=== PATIENT | female | born 1985 | race Caucasian/White ===

== ENCOUNTER 2019-08-03 06:19 | Emergency (ER) | payer MEDICAID ==
[~2019-08-03] VITALS: Ht 170.2 cm; Wt 67.0 kg
[2019-08-03] MEDS ORDERED: ketorolac trometh. 30mg/ml inj. IV ONE (07:45)
[2019-08-03] MEDS ORDERED: normal saline 1000ML IV soln IVB ONE (07:45)
[2019-08-03] MEDS ORDERED: diphenhydrAMINE 50 mg/ml inj IV ONE (07:45)
[2019-08-03] MEDS ORDERED: LORazepam 2 mg/ml vial IV ONE (07:45)
[2019-08-03] MEDS ORDERED: metoclopramide 5 mg/ml inj IV ONE (07:45)
[2019-08-03] MEDS ORDERED: dexamethasone sod phosphate 10mg/ml inj IV STA (08:19)
[2019-08-03 09:35] VITALS: BP 122/70
== END 2019-08-03 10:43 | disposition home or self-care (01) ==
LOC: ER 06:19
DX: R51 Headache (principal); R21 Rash and other nonspecific skin eruption; L98.8 Other specified disorders of the skin and subcutaneous tissue; F15.90 Other stimulant use, unspecified, uncomplicated; R11.2 Nausea with vomiting, unspecified; Z88.0 Allergy status to penicillin
CPT/HCPCS: 96361; 96374; 96375; 99283; J1100; J1200; J1885; J2060; J2765; J7030

== ENCOUNTER 2019-08-05 23:31 | Emergency (ER) | payer MEDICAID ==
[~2019-08-05] VITALS: Ht 170.2 cm; Wt 67.0 kg
--- NOTE | 2019-08-06 00:40 | NUR ---
DR. SILVERIO AT BEDSIDE ASSESSING PATIENT
[2019-08-06] MEDS ORDERED: morphine 4 MG/ML inj SYRINge IM ONE (00:55)
[2019-08-06] MEDS ORDERED: normal saline 1000ML IV soln IV ONE (01:00)
[2019-08-06 01:33] LABS: BASOPHILS % (AUTO) 0.7 % (0-1); EOSINOPHILS # (AUTO) 0.1 X10'3 (0-0.9); EOSINOPHILS % (AUTO) 1.7 % (0-6); HEMATOCRIT 36.5 % (35.0-45.0); HEMOGLOBIN 12.7 g/dl (12.0-16.0); LYMPHOCYTES # (AUTO) 1.1 X10'3 (1.1-4.8); LYMPHOCYTES % (AUTO) 16.4 % (21-51); MEAN CORPUSCULAR HEMOGLOBIN 30.4 PG (27.0-31.0); MEAN CORPUSCULAR HGB CONC 34.7 g/dL (33.0-36.5); MEAN CORPUSCULAR VOLUME 87.6 FL (78-98); MEAN PLATELET VOLUME 6.9 FL (7.4-10.4); MONOCYTES # (AUTO) 0.5 X10'3 (0-0.9); MONOCYTES % (AUTO) 8.4 % (2-12); NEUTROPHILS # (AUTO) 4.7 X10'3 (1.8-7.7); NEUTROPHILS % (AUTO) 72.8 % (42-75); PLATELET COUNT 328 X10'3 (140-440); RED BLOOD COUNT 4.17 X10'6 (4.20-5.60); RED CELL DISTRIBUTION WIDTH 13.6 % (11.5-14.5); WHITE BLOOD COUNT 6.5 X10'3 (4.5-11.0)
[2019-08-06 01:48] LABS: ALANINE AMINOTRANSFERASE 17 U/L (12-78); ALBUMIN 3.2 G/DL (3.4-5.0); ALBUMIN/GLOBULIN RATIO 0.6 (1.1-1.5); ALKALINE PHOSPHATASE 113 IU/L (46-116); ANION GAP 7 (8-16); ASPARTATE AMINO TRANSFERASE 15 U/L (10-37); BILIRUBIN,TOTAL 0.3 MG/DL (0.1-1.0); BLOOD UREA NITROGEN 10 MG/DL (7-18); BUN/CREATININE RATIO 11.8 (6.6-38.0); CALCIUM 8.6 MG/DL (8.5-10.1); CHLORIDE 101 MMOL/L (99-107); CREATININE 0.85 MG/DL (0.40-0.90); GLUCOSE 93 MG/DL (70-104); POTASSIUM 3.7 MMOL/L (3.5-5.1); SODIUM 136 MMOL/L (135-145); TOTAL CARBON DIOXIDE 28.3 MMOL/L (24-32); TOTAL PROTEIN 8.5 G/DL (6.4-8.2); eGFR 77 ML/MIN
--- NOTE | 2019-08-06 01:57 | NUR ---
patient is a difficult iv stick failed on multiple attempts, spoke with dr. davies, went over labs and dr. davies verbalized to hold on iv re-check vitals and she will re assess patient
--- NOTE | 2019-08-06 02:07 | NUR ---
patient in bed covers on eyes closed rr even un labored no observable s/s of acute stress/pain at this time will continue to monitor
[2019-08-06] MEDS ORDERED: CLOT12CR TOP (02:40)
[2019-08-06 02:48] VITALS: BP 118/66
[2019-08-08 15:08] LABS: RPR Reactive (Non Reactive)
== END 2019-08-06 02:49 | disposition home or self-care (01) ==
LOC: ER 23:31
DX: B37.9 Candidiasis, unspecified (principal); K60.2 Anal fissure, unspecified; L98.499 Non-pressure chronic ulcer of skin of other sites with unspecified severity; R51 Headache; R11.10 Vomiting, unspecified; R21 Rash and other nonspecific skin eruption; F17.200 Nicotine dependence, unspecified, uncomplicated; Z88.0 Allergy status to penicillin; Z79.899 Other long term (current) drug therapy
CPT/HCPCS: 36415; 80053; 83605; 84145; 85025; 86592; 87040; 96372; 99283; J2270

== ENCOUNTER 2019-08-13 23:29 | Emergency (ER) | payer MEDICAID ==
[~2019-08-13] VITALS: Ht 170.2 cm; Wt 65.9 kg
[~2019-08-13 23:29] MED LIST: CLOT12CR TOP
[2019-08-14] MEDS ORDERED: azithromycin 250mg tablet PO ONE (00:45)
[2019-08-14] MEDS ORDERED: CefTRIAXone 1000mg IM Kit (w/lidocaine diluent) IM ONE (00:45)
[2019-08-14] MEDS ORDERED: DOXYCYCLINE 100MG CAPSULE PO STA (00:47)
[2019-08-14] MEDS ORDERED: NAPR-56 PO (00:55)
[2019-08-14] MEDS ORDERED: DOXY-1 PO (00:55)
[2019-08-14] MEDS ORDERED: naproxen 500mg tablet PO ONE (01:00)
[2019-08-14 01:45] LABS: HIV ANTIBODY 1&2 RAPID NON-REACTIVE (Neg)
[2019-08-14 02:20] VITALS: BP 130/58
== END 2019-08-14 02:22 | disposition home or self-care (01) ==
LOC: ER 23:30
DX: A53.9 Syphilis, unspecified (principal); F12.90 Cannabis use, unspecified, uncomplicated; Z88.0 Allergy status to penicillin
CPT/HCPCS: 36415; 86703; 87491; 87591; 96372; 99283; J0696

== ENCOUNTER 2020-01-16 03:58 | Emergency (ER) | payer MEDICAID ==
[~2020-01-16] VITALS: Ht 170.2 cm; Wt 63.6 kg
[2020-01-16 04:48] LABS: CLARITY,URINE SLIGHTLY CLOUDY (Clear); COLOR,URINE YELLOW (Yellow); GLUCOSE, URINE NEGATIVE (Neg); KETONES,URINE NEGATIVE (Neg); LEUKOCYTE ESTERASE ,URINE SMALL (Neg); NITRITES, URINE POSITIVE (Neg); OCCULT BLOOD,URINE NEGATIVE (Neg); PROTEIN,URINE NEGATIVE (Neg); UROBILINOGEN,URINE 0.2 E.U/dL (0.2-1.0)
[2020-01-16 04:49] LABS: URINE HCG POSITIVE (NEG)
[2020-01-16 05:00] LABS: UA COLLECTION TYPE CLN CATCH MIDSTREAM
[2020-01-16 05:02] LABS: WBC,URINE 20-30 /HPF (0-4)
[2020-01-16 05:03] LABS: BACTERIA,URINE 3+ /HPF (Neg); RBC,URINE NONE SEEN /HPF (0-2); SQUAMOUS EPITHELIAL CELL,UR MODERATE /LPF (FEW)
[2020-01-16] MEDS ORDERED: nitrofuran/nitrofuran macrocrysal 100 MG capsule PO ONE (05:05)
[2020-01-16] MEDS ORDERED: NITR100C6 PO (05:11)
[2020-01-16 05:17] LABS: URINE AMPHETAMINE SCREEN POSITIVE (Neg); URINE BARBITUATE SCREEN NEGATIVE (Neg); URINE BENZODIAZEPINES SCREEN NEGATIVE (Neg); URINE CANNABINOID SCREEN NEGATIVE (Neg); URINE COCAINE SCREEN NEGATIVE (Neg); URINE METHADONE SCREEN NEGATIVE (Neg); URINE OPIATE SCREEN NEGATIVE (Neg); URINE PHENCYCLIDINE SCREEN NEGATIVE (Neg)
[2020-01-16 05:18] VITALS: BP 108/69
== END 2020-01-16 05:20 ==
LOC: ER 03:58
DX: N39.0 Urinary tract infection, site not specified (principal); F15.20 Other stimulant dependence, uncomplicated; F12.90 Cannabis use, unspecified, uncomplicated; Z34.92 Encounter for supervision of normal pregnancy, unspecified, second trimester; Z3A.16 16 weeks gestation of pregnancy; Z88.0 Allergy status to penicillin; Z88.1 Allergy status to other antibiotic agents; Z79.2 Long term (current) use of antibiotics; Z79.899 Other long term (current) drug therapy
CPT/HCPCS: 80305; 81001; 81025; 87077; 87088; 87186; 99283

== ENCOUNTER 2021-10-09 09:44 | Emergency (ER) | payer MEDICAID ==
[~2021-10-09] VITALS: Ht 170.2 cm; Wt 73.1 kg
[~2021-10-09 09:44] MED LIST changes: +NITR100C6 PO
[2021-10-09 09:51] VITALS: BP 115/79
[2021-10-09] MEDS ORDERED: PRED10TA PO (10:08)
[2021-10-09] MEDS ORDERED: triamcinolone acetonide 40mg/ml inj IM ONE (10:10)
== END 2021-10-09 10:25 | disposition home or self-care (01) ==
LOC: ER 09:44
DX: L23.7 Allergic contact dermatitis due to plants, except food (principal); R21 Rash and other nonspecific skin eruption; F12.90 Cannabis use, unspecified, uncomplicated; F15.90 Other stimulant use, unspecified, uncomplicated; Z79.2 Long term (current) use of antibiotics; Z87.440 Personal history of urinary (tract) infections; Z88.0 Allergy status to penicillin; Z88.1 Allergy status to other antibiotic agents; Z79.899 Other long term (current) drug therapy
CPT/HCPCS: 96372; 99283; J3301

== ENCOUNTER 2021-10-16 04:07 | Emergency (ER) | payer MEDICAID ==
[~2021-10-16] VITALS: Ht 170.2 cm; Wt 73.0 kg
[~2021-10-16 04:07] MED LIST changes: +PRED10TA PO
[2021-10-16 04:15] VITALS: BP 124/87
[2021-10-16] MEDS ORDERED: clindamycin 150mg capsule PO ONE (05:35)
[2021-10-16] MEDS ORDERED: CLIN-97 PO (05:39)
== END 2021-10-16 06:07 | disposition home or self-care (01) ==
LOC: ER 04:07
DX: K04.7 Periapical abscess without sinus (principal); F12.10 Cannabis abuse, uncomplicated; F15.10 Other stimulant abuse, uncomplicated; Z88.0 Allergy status to penicillin; Z88.1 Allergy status to other antibiotic agents; Z79.899 Other long term (current) drug therapy
CPT/HCPCS: 99283

== ENCOUNTER 2022-07-02 13:57 | Emergency (ER) | payer MEDICAID ==
[~2022-07-02] VITALS: Ht 167.6 cm; Wt 70.0 kg
[~2022-07-02 13:57] MED LIST changes: +CLIN-97 PO
[2022-07-02 14:02] VITALS: BP 120/85
[2022-07-02] MEDS ORDERED: DOXY100C76 PO (15:25)
== END 2022-07-02 15:50 | disposition left against medical advice (07) ==
LOC: ER 13:58
DX: L73.8 Other specified follicular disorders (principal); F12.10 Cannabis abuse, uncomplicated; F15.10 Other stimulant abuse, uncomplicated; Z87.448 Personal history of other diseases of urinary system; Z88.0 Allergy status to penicillin; Z88.1 Allergy status to other antibiotic agents; Z79.899 Other long term (current) drug therapy; Z79.1 Long term (current) use of non-steroidal anti-inflammatories (NSAID)
CPT/HCPCS: 99283

== ENCOUNTER 2022-08-22 12:52 | Emergency (ER) | payer MEDICAID ==
[~2022-08-22] VITALS: Ht 170.2 cm; Wt 68.2 kg
[2022-08-22 13:53] VITALS: BP 110/73
== END 2022-08-22 17:31 | disposition left against medical advice (07) ==
LOC: ER 12:52
DX: R19.7 Diarrhea, unspecified (principal); R10.9 Unspecified abdominal pain; Z53.21 Procedure and treatment not carried out due to patient leaving prior to being seen by health care provider

== ENCOUNTER 2022-08-23 10:35 | Emergency (ER) | payer MEDICAID ==
[~2022-08-23] VITALS: Ht 170.2 cm; Wt 63.0 kg
[2022-08-23 10:38] VITALS: BP 123/81
== END 2022-08-23 17:25 | disposition left against medical advice (07) ==
LOC: ER 10:35
DX: R19.7 Diarrhea, unspecified (principal); Z53.21 Procedure and treatment not carried out due to patient leaving prior to being seen by health care provider

== ENCOUNTER 2022-10-11 11:43 | Emergency (ER) | payer MEDICAID ==
[2022-10-11 12:07] LABS: BASOPHILS # (AUTO) 0.1 X10'3 (0-0.2); BASOPHILS % (AUTO) 1.3 % (0-1); EOSINOPHILS # (AUTO) 0.1 X10'3 (0-0.9); EOSINOPHILS % (AUTO) 1.5 % (0-6); HEMOGLOBIN 14.5 g/dl (12.0-16.0); LYMPHOCYTES # (AUTO) 2.3 X10'3 (1.1-4.8); LYMPHOCYTES % (AUTO) 28.5 % (21-51); MEAN CORPUSCULAR HEMOGLOBIN 30.3 PG (27.0-31.0); MEAN CORPUSCULAR VOLUME 91.6 FL (78-98); MEAN PLATELET VOLUME 7.2 FL (7.4-10.4); MONOCYTES # (AUTO) 0.6 X10'3 (0-0.9); MONOCYTES % (AUTO) 7.7 % (2-12); NEUTROPHILS # (AUTO) 4.9 X10'3 (1.8-7.7); PLATELET COUNT 334 X10'3 (140-440); RED BLOOD COUNT 4.81 X10'6 (4.20-5.60); RED CELL DISTRIBUTION WIDTH 14.6 % (11.5-14.5); WHITE BLOOD COUNT 8.1 X10'3 (4.5-11.0)
[2022-10-11 12:44] LABS: ALANINE AMINOTRANSFERASE 50 U/L (12-78); ALBUMIN 3.6 G/DL (3.4-5.0); ALBUMIN/GLOBULIN RATIO 0.8 (1.1-1.5); ALKALINE PHOSPHATASE 102 IU/L (46-116); ANION GAP 11 (8-16); ASPARTATE AMINO TRANSFERASE 39 U/L (10-37); BILIRUBIN,TOTAL 0.5 MG/DL (0.1-1.0); BLOOD UREA NITROGEN 10 MG/DL (7-18); BUN/CREATININE RATIO 10.5 (10.0-20.0); CALCIUM 8.9 MG/DL (8.5-10.1); CHLORIDE 103 MMOL/L (99-107); CREATININE 0.95 MG/DL (0.40-0.90); GLUCOSE 132 MG/DL (70-104); SODIUM 138 MMOL/L (135-145); TOTAL CARBON DIOXIDE 24.1 MMOL/L (24-32); TOTAL PROTEIN 8.4 G/DL (6.4-8.2); eGFR 66 ML/MIN
[2022-10-11 12:51] LABS: MAGNESIUM 2.1 MG/DL (1.5-2.4)
== END 2022-10-11 13:24 | disposition left against medical advice (07) ==
LOC: ER 11:44
DX: R07.89 Other chest pain (principal); Z53.21 Procedure and treatment not carried out due to patient leaving prior to being seen by health care provider
CPT/HCPCS: 36415; 80053; 83735; 83880; 84484; 85025; 93005; 99281

== ENCOUNTER 2023-09-12 20:56 | Emergency (ER) | payer MEDICAID | END 2023-09-12 21:24 | disposition left against medical advice (07) | LOC: ER 20:58 | DX: H53.8 Other visual disturbances (principal); Z53.21 Procedure and treatment not carried out due to patient leaving prior to being seen by health care provider ==

== ENCOUNTER 2023-09-14 23:25 | Emergency (ER) | payer MEDICAID ==
[~2023-09-14] VITALS: Ht 170.2 cm; Wt 69.9 kg
[2023-09-15] MEDS ORDERED: ondansetron 4mg rapidly disintigrating tab ONE (01:18)
[2023-09-15] MEDS: ondansetron 4mg rapidly disintigrating tab PO ONE (01:22)
[2023-09-15 01:30] VITALS: BP 106/68; PULSE 99; RESP 18; TEMP 98.6; O2SAT 98
== END 2023-09-15 01:31 | disposition home or self-care (01) ==
LOC: ER 23:26
DX: R11.2 Nausea with vomiting, unspecified (principal); F12.90 Cannabis use, unspecified, uncomplicated; F15.90 Other stimulant use, unspecified, uncomplicated; Z88.0 Allergy status to penicillin; Z79.2 Long term (current) use of antibiotics; Z79.899 Other long term (current) drug therapy; Z88.8 Allergy status to other drugs, medicaments and biological substances
CPT/HCPCS: 99283

== ENCOUNTER 2023-09-16 17:07 | Emergency (ER) | payer MEDICAID ==
[~2023-09-16] VITALS: Ht 170.2 cm; Wt 68.3 kg
[2023-09-16 17:10] VITALS: BP 103/72; PULSE 113; RESP 16; TEMP 98; O2SAT 97
== END 2023-09-16 18:08 | disposition left against medical advice (07) ==
LOC: ER 17:08
DX: M79.10 Myalgia, unspecified site (principal); Z53.21 Procedure and treatment not carried out due to patient leaving prior to being seen by health care provider
CPT/HCPCS: 99281

== ENCOUNTER 2023-09-17 16:50 | Emergency (ER) | payer MEDICAID ==
[~2023-09-17] VITALS: Ht 170.2 cm; Wt 63.6 kg
[2023-09-17 16:51] VITALS: BP 114/72; PULSE 113; RESP 16; TEMP 98.6; O2SAT 100
== END 2023-09-17 18:15 | disposition left against medical advice (07) ==
LOC: ER 16:50
DX: R10.9 Unspecified abdominal pain (principal); F12.90 Cannabis use, unspecified, uncomplicated; F15.90 Other stimulant use, unspecified, uncomplicated; Z79.899 Other long term (current) drug therapy; Z88.0 Allergy status to penicillin; Z88.1 Allergy status to other antibiotic agents; Z79.2 Long term (current) use of antibiotics
CPT/HCPCS: 74018; 85025; 99283

== ENCOUNTER 2024-07-29 05:27 | Emergency (ER) | payer MEDICAID, OTHER ==
[~2024-07-29] VITALS: Ht 167.6 cm; Wt 58.2 kg
[2024-07-29 05:29] VITALS: BP 103/75; PULSE 88; RESP 14; TEMP 97.4; O2SAT 100
[2024-07-29] MEDS ORDERED: ondansetron 4mg rapidly disintigrating tab PO ONE (05:45)
== END 2024-07-29 06:14 | disposition left against medical advice (07) ==
LOC: ER 05:28
DX: R11.0 Nausea (principal); Z53.21 Procedure and treatment not carried out due to patient leaving prior to being seen by health care provider; Z88.1 Allergy status to other antibiotic agents; Z88.0 Allergy status to penicillin